=== PATIENT | female | born 1970 | race Caucasian/White ===

== ENCOUNTER 2017-07-22 21:24 | Observation (INO) ==
[2017-07-22 22:34] LABS: Basophils # 0.1 K/mcL (0.0-0.2); Basophils % 0.7 %; Eosinophils # 0.2 K/mcL (0.0-0.6); Hematocrit 42.4 % (35.3-44.9); Hemoglobin 14.3 g/dL (11.5-15.4); Immature Granulocytes % 0.2 % (0-4); Lymphocytes # 3.9 K/mcL (0.6-4.6); Lymphocytes % 44.5 %; Mean Corpuscular HGB Conc 33.7 g/dL (31.6-35.5); Mean Platelet Volume 9.8 fL (9.4-12.4); Monocytes # 0.7 K/mcL (0.0-1.3); Monocytes % 8.5 %; Neutrophils # 3.8 K/mcL (1.6-8.9); Platelet Count 379 K/mcL (140-400); Red Cell Distribution Width 12.6 % (11.5-14.5); Segmented Neutrophils % 44.1 %
[2017-07-22 22:49] LABS: BUN/Creatinine Ratio 17 (6-26); Blood Urea Nitrogen 18 mg/dL (6-20); Calcium 9.3 mg/dL (8.6-10.3); Carbon Dioxide 23 mEq/L (23-29); Chloride 104 mEq/L (98-107); Glucose 123 mg/dL (70-105); Osmolality,Calculated 285 (280-300); Sodium 136 mEq/L (136-145); eGFR For African Americans > 60 (> 60); eGFR For Non-African Americans 57 (> 60)
--- NOTE | 2017-07-22 23:30 | Emergency Department Note ---
Disposition Clinical Impression: Chest pain, rule out acute myocardial infarction Disposition: Admitted As Inpatient Condition: Fair Time of Disposition: 23:20 General Adult HPI - General Chief complaint: ED Shortness of Breath/Dyspnea Stated complaint: Bridger Time Seen by Provider: 07/22/17 22:04 Source: patient Limitations: no limitations Nursing Notes Reviewed: Yes Vital Signs Reviewed: Yes - History of Present Illness HPI Narrative: 47-year-old female presents emergency Department with concerns of multiple complaints. Patient states she was initially diagnosed with possible diverticulitis within the past few days after she was seen by her nurse practitioner and had pain on abdominal exam. Ciprofloxacin and Flagyl were started which patient has taken over the past 2 days however she has started to become weak and fatigued. Patient states she has significant shortness of breath and chest pain with exertion. No history of cardiac disease in the past. Patient has never been evaluated for cardiac disease. She has a history of tobacco use however there is no no family history of cardiac disease and patient denies a history of diabetes, high blood pressure, high cholesterol. Patient states she becomes lightheaded and diaphoretic with exertion as well. Pain Scale: 4 - Related Data Home Medications Medication Instructions Recorded Confirmed Levothyroxine [Synthroid] 175 mcg PO Q48H 10/23/16 10/23/16 Previous Rx's Medication Instructions Recorded Amoxicillin/Clavulanate [Augmentin] 875 mg PO BIDWM #10 tablet 07/09/17 Guaifenesin/Dm/Pseudoephedrine 1 each PO BID #20 tablet 07/09/17 [Capmist Dm Tablet] Magic Mouthwash [Magic Mouthwash 10 ml PO QID #240 ml 07/09/17 BLM] Allergies Allergy/AdvReac Type Severity Reaction Status Date / Time codeine AdvReac Itching Verified 07/09/17 16:55 All systems ED: reviewed and negative except as stated. Review of Systems: As Per HPI Cardiovascular: Reports: chest pain, palpitations, dyspnea on exertion Respiratory: Denies: cough, dyspnea, wheezes Gastrointestinal: Reports: abdominal pain, nausea, vomiting Past Medical History - Past Medical History Attestation: Yes The following information was validated with the patient. Source: patient Medical history: Reports: thyroid disease Surgical history: Reports: cholecystectomy Psychiatric history: Reports: no psych history [employer] history: Reports: bilateral tubal ligation - Social History Smoking Status: Current every day smoker Smokeless Tobacco Status: No Alcohol use: Reports: occasionally Drug use: Reports: none Physical Exam General: Alert and in no acute distress Skin: Warm, dry, intact Head: Normocephalic and atraumatic Neck: Supple, trachea midline and no tenderness Cardiovascular: RRR, no murmur, normal perfusion Respiratory: CTAB, no wheezing, cough, or respiratory distress Musculoskeletal: Normal strength, no tenderness, swelling or deformity GI: Soft, nontender, nondistended. Bowel sounds present Neuro: A&O to person, place, time and situation. No focal deficits noted on exam Psychiatric: cooperative and appropriate mood and affect. - General Limitations: no limitations General appearance: alert, in no apparent distress Course Vital Signs Temperature 97.8 F 07/22/17 21:26 Pulse Rate 94 07/22/17 21:26 Respiratory Rate 16 07/22/17 21:26 Blood Pressure 149/100 07/22/17 21:26 O2 Sat by Pulse Oximetry 98 07/22/17 21:26 Temperature 97.8 F 07/22/17 21:26 Pulse Rate 90 07/22/17 23:34 Respiratory Rate 18 07/23/17 00:15 Blood Pressure 128/88 07/23/17 00:15 O2 Sat by Pulse Oximetry 96 07/22/17 23:34 Oxygen Delivery Oxygen Delivery Room Air Medical Decision Making - [facility] Narrative Medical decision making narrative: Patient has pain to chest with exertion. She will be admitted for further care and evaluation of her chest pain. - Medical Records Medical records reviewed: Yes I reviewed the patient's medical records. - Lab Data Lab results reviewed: Yes I reviewed the patient's lab results. Result diagrams: 07/22/17 22:21 07/22/17 22:21 Lab Results 07/22/17 07/22/17 07/22/17 Range/Units 22:21 22:21 22:21 WBC 8.7 (4.3-11.1) K/mcL RBC 4.20 (3.82-4.97) M/mcL Hgb 14.3 (11.5-15.4) g/dL Hct 42.4 (35.3-44.9) % MCV 101.0 H (83.0-100.0) fL MCH 34.0 H (28.0-33.3) pg MCHC 33.7 (31.6-35.5) g/dL RDW 12.6 (11.5-14.5) % Plt Count 379 (140-400) K/mcL MPV 9.8 (9.4-12.4) fL Immature Gran % 0.2 (0-4) % Seg Neutrophils % 44.1 % Lymphocytes % 44.5 % Monocytes % 8.5 % Eosinophils % 2.0 % Basophils % 0.7 % Neutrophils # 3.8 (1.6-8.9) K/mcL Lymphocytes # 3.9 (0.6-4.6) K/mcL Monocytes # 0.7 (0.0-1.3) K/mcL Eosinophils # 0.2 (0.0-0.6) K/mcL Basophils # 0.1 (0.0-0.2) K/mcL Sodium 136 (136-145) mEq/L Potassium 4.0 (3.5-5.1) mEq/L Chloride 104 (98-107) mEq/L Carbon Dioxide 23 (23-29) mEq/L BUN 18 (6-20) mg/dL Creatinine 1.03 (0.60-1.20) mg/dL Est GFR ( Amer) > 60 (> 60) Est GFR (Non-Af Amer) 57 L (> 60) BUN/Creatinine Ratio 17 (6-26) Glucose 123 H (70-105) mg/dL Calculated Osmolality 285 (280-300) Lactic Acid 1.2 (0.5-2.2) mmol/L Calcium 9.3 (8.6-10.3) mg/dL Troponin I (< 0.04) ng/mL B-Natriuretic Peptide (Less than 100) pg/mL 07/22/17 07/22/17 Range/Units 22:21 22:21 WBC (4.3-11.1) K/mcL RBC (3.82-4.97) M/mcL Hgb (11.5-15.4) g/dL Hct (35.3-44.9) % MCV (83.0-100.0) fL MCH (28.0-33.3) pg MCHC (31.6-35.5) g/dL RDW (11.5-14.5) % Plt Count (140-400) K/mcL MPV (9.4-12.4) fL Immature Gran % (0-4) % Seg Neutrophils % % Lymphocytes % % Monocytes % % Eosinophils % % Basophils % % Neutrophils # (1.6-8.9) K/mcL Lymphocytes # (0.6-4.6) K/mcL Monocytes # (0.0-1.3) K/mcL Eosinophils # (0.0-0.6) K/mcL Basophils # (0.0-0.2) K/mcL Sodium (136-145) mEq/L Potassium (3.5-5.1) mEq/L Chloride (98-107) mEq/L Carbon Dioxide (23-29) mEq/L BUN (6-20) mg/dL Creatinine (0.60-1.20) mg/dL Est GFR ( Amer) (> 60) Est GFR (Non-Af Amer) (> 60) BUN/Creatinine Ratio (6-26) Glucose (70-105) mg/dL Calculated Osmolality (280-300) Lactic Acid (0.5-2.2) mmol/L Calcium (8.6-10.3) mg/dL Troponin I < 0.03 (< 0.04) ng/mL B-Natriuretic Peptide 7 (Less than 100) pg/mL - Radiology Data Radiology results reviewed: Yes I reviewed the patient's radiology results.
[2017-07-23] MEDS ORDERED: Aspirin 81 MG TAB.CHEW PO ONE (00:30)
[2017-07-23] MEDS ORDERED: Acetaminophen 325 MG TABLET PO PRN (02:10)
[2017-07-23] MEDS ORDERED: Ondansetron ODT 4 MG TAB.RAPDIS SL PRN (02:10)
[2017-07-23] MEDS ORDERED: *HR* HYDROcodone/Acet 5/325 mg TABLET PO PRN (02:10)
[2017-07-23] MEDS ORDERED: Naloxone 0.4 MG/ML INJ IVP PRN (02:10)
[2017-07-23] MEDS ORDERED: 0.9 % Sodium Chloride 1,000 ML IVC ONE (02:16)
--- NOTE | 2017-07-23 02:18 | Internal Med History&Physical ---
Date of Encounter: 07/23/17 Time of Encounter: 02:09 Assessment and Plan (1) Chest pain, rule out acute myocardial infarction Current visit: Yes Status: Acute EKG negative and troponin negative will trend troponin x3 for ACS rule out based on history, suspect more like GERD likely element of dehydration; will give IVF (2) Acid reflux Current visit: Yes Status: Acute Dx based on history of retrosternal burning sensation worse after meals and supine Give GI cocktail Start pantoprazole 40mg IV daily Qualifiers: Esophagitis presence: esophagitis presence not specified Qualified Code(s) : K21.9 - Gastro-esophageal reflux disease without esophagitis (3) LLQ abdominal pain Current visit: Yes Status: Acute overall abdominal exam benign without peritoneal signs; patient afebrile -- diverticulitis possible, though doubt complicated state, i.e., perforation or abscess cont augmentin reassess abd pain in AM consider Abdominal CT if pain changes or worsens (4) Dehydration, mild Current visit: Yes Status: Acute Given 1L NS bolus followed by maintenance IVF (5) Hypothyroid Current visit: Yes Status: Acute cont Synthroid per home Rx Qualifiers: 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 Holder is a 47 year old female with no known cardiac history admitted by ED for ACS r/o. Patient states that on Saturday she began to have left lower quadrant abdominal pain which sharpen quality and associated with a dull crampy pain over a much broader abdominal distribution. Patient saw her primary care provider who started her on Cipro and Flagyl. Patient these medications faithfully, but states that her primary care provider changed her to Augmentin today. With this course of time, patient describes that she has had significant fatigue with any activity feeling like she could pass out. Denies any overt shortness of air, actual episodes of syncope, palpitations, diaphoresis, vomiting, leg swelling. Patient also describes a retrosternal chest pain is worse when she is lying supine and after meals, is burning in quality, and extends up into her parents. Patient states that never had symptoms like this before; does not take any antacids. 47-year-old female presents emergency Department with concerns of multiple complaints. Patient states she was initially diagnosed with possible diverticulitis within the past few days after she was seen by her nurse practitioner and had pain on abdominal exam. Ciprofloxacin and Flagyl were started which patient has taken over the past 2 days however she has started to become weak and fatigued. Patient states she has significant shortness of breath and chest pain with exertion. No history of cardiac disease in the past. Patient has never been evaluated for cardiac disease. She has a history of tobacco use however there is no no family history of cardiac disease and patient denies a history of diabetes, high blood pressure, high cholesterol. Patient states she becomes lightheaded and diaphoretic with exertion as well. Past Med Surg Social Fam HX - Past Medical History Attestation: Yes The following information was validated with the patient. Medical history: thyroid disease Psychiatric history: no psych history - Past Surgical History Surgical History: cholecystectomy - Social History Smoking Status: Current every day smoker Packs per day: 1/2 Smokeless Tobacco Status: No Alcohol use: occasionally Drug use: none Internal Medicine - H&P: Meds Levothyroxine [Synthroid] 175 mcg PO Q48H 10/23/16 [History] Amoxicillin/Clavulanate [Augmentin] 875 mg PO BIDWM #10 tablet 07/09/17 [Rx] Levothyroxine 150 mcg PO Q48H 07/23/17 [History] 3 Allergy/AdvReac Type Severity Reaction Status Date / Time codeine AdvReac Itching Verified 07/09/17 16:55 All Systems PM: A 10-system review of systems was performed and is negative for pertinent findings except as documented above in the HPI. Review of systems: Positive: lightheadedness, exertional fatigue, retrosternal burning sensation, sharp left lower quadrant abdominal pain Negative: headache, fever, visual disturbances, syncope, palpitations, dyspnea, nausea, vomiting, diarrhea, grossly bloody stools, melanotic stools, dysuria, hematuria, leg swelling, focal numbness or weakness. - Constitutional Vitals: Temp Pulse Resp BP Pulse Ox 97.4 F L 75 14 126/85 98 07/23/17 00:48 07/23/17 00:48 07/23/17 00:48 07/23/17 00:48 07/23/17 00:48 Exam: CONSTITUTIONAL: Alert and oriented X3, inclined in bed, well-nourished, well appearing, in no apparent distress HEAD: Normocephalic; atraumatic. EYES: PERRL, no scleral icterus, no drainage, no conjunctival injection Oropharynx: pink, somewhat dry mucosa RESP: NRD without use of accessory musculature, CTA b/l with no wheezes/rales/ rhonchi CARD: Regular rhythm, without murmurs, rubs, or gallop ABD: grossly normal, soft, tender to LLQ with deep palpation, no guarding/ distention/rigidity, negative for peritoneal signs SKIN: normal appearance, no pallor/diaphoresis,mottling,jaundice,cyanosis EXT: DP/Rad pulses 2+ and symmetrical; no leg edema; no other lesions seen PSYCH: appropriate mood/affect Internal Med - H&P Results - Labs CBC & Chem 7: 07/22/17 22:21 07/22/17 22:21
[2017-07-23] MEDS ORDERED: 0.9 % Sodium Chloride 1,000 ML IVC SCH (02:30)
[2017-07-23] MEDS ORDERED: GI Cocktail 40 ML EACH PO ONE (02:54)
[2017-07-23] MEDS ORDERED: *HR* Heparin 5,000 UNIT/ML VIAL SQ SCH (06:00)
[2017-07-23] MEDS ORDERED: Pantoprazole 40 MG VIAL IVP SCH (07:30)
[2017-07-23 10:16] VITALS: BP 120/81
--- NOTE | 2017-07-23 13:25 | Discharge Summary ---
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 Qualified Code(s): E03.8 - Other specified hypothyroidism; E06.3 - Autoimmune thyroiditis; E06.3 - Autoimmune thyroiditis; E06.3 - Autoimmune thyroiditis (4) Acid reflux Priority: Secondary Status: Acute Qualifiers: Esophagitis presence: esophagitis presence not specified Qualified Code(s) : K21.9 - Gastro-esophageal reflux disease without esophagitis - Discharge Medications Prescriptions: Omeprazole [PriLOSEC] 20 mg PO BIDAC #60 cap Home Medications: Levothyroxine [Synthroid] 175 mcg PO Q48H 10/23/16 [History] Levothyroxine [Synthroid] 150 mcg PO Q48H 07/23/17 [History] Omeprazole [PriLOSEC] 20 mg PO BIDAC #60 cap 07/23/17 [Rx] Allergies/Adverse Reactions: 3 Allergy/AdvReac Type Severity Reaction Status Date / Time codeine AdvReac Itching Verified 07/09/17 16:55 Procedures/tests Complete & Pending: Procedures Performed prior 72 hours Category Date Time Status CT abd pelvis w iv and oral [CT] Stat Cat Scan 07/23/17 04:48 Completed Date of admission: 07/23/17 00:10 Primary care physician: Roxana Odom - Patient Status Disposition: Home, Self-Care Condition: Good Overall status at discharge: patient is back to baseline - Discharge Instructions Instructions: Diet for Ulcers and Gastritis (GEN) Follow Up With: Roxana Odom, [facility] [Primary Care Provider] - - Diet and Activity Activity: increase activity as tolerated Diet: low salt diet (please avoid fried food and spicy food) Hospital course: Ms. Holder is a 47 year old female with known hypothyroidism and no known cardiac history presented to ED with epigastric pain and chest discomfort. Patient states that on Saturday she began to have left lower quadrant abdominal pain which sharpen quality and associated with a dull crampy pain over a much broader abdominal distribution. Patient saw her primary care provider who started her on Cipro and Flagyl. Patient these medications faithfully, but states that her primary care provider changed her to Augmentin today. Patient also describes a retrosternal chest pain is worse when she is lying supine and after meals, is burning in quality, and extends up into her parents. Patient states that never had symptoms like this before; does not take any antacids. She was admitted in the hospital and placed her on tele and checked serial troponin which were negative. Her EKG showed NSR, No ST T changes, no acute ischemic changes. Her epigastric pain mostly due to GERD and Possible gastritis. With IV Protonix her symptoms resolved. Now she is tolerating PO intake well, denied any more Nausea/ vomiting. So will d/c her home in stable condition today with PO PPI. Her CT of Abd did not show any diverticulitis, so does not need any abx. - Time Spent with Patient Total time spent providing and/or coordinating discharge services: - Constitutional Vitals: Temp Pulse Resp BP Pulse Ox 97.7 F 75 18 120/81 97 07/23/17 10:13 07/23/17 10:13 07/23/17 10:13 07/23/17 10:13 07/23/17 10:13 General appearance: Present: A&O X 3, no acute distress - Head Head exam: Present: atraumatic, normal inspection - Neck Neck exam general surgery: Present: supple - Respiratory Respiratory exam: Present: decreased breath sounds. Absent: rales, respiratory distress, rhonchi, wheezes - Cardiovascular Cardiovascular exam: Present: RRR, +S1, +S2. Absent: tachycardia - GI/Abdominal GI/Abdominal exam: Present: normal bowel sounds, soft. Absent: rebound, rigid, tenderness - Extremities Exam Extremities exam: Absent: calf tenderness, pedal edema, tenderness - Back Exam Back exam: Absent: CVA tenderness (L), CVA tenderness (R) - Neurological Exam Neurological exam: Present: alert, oriented X3 - Psychiatric Psychiatric exam: Present: normal affect, normal mood
--- NOTE | 2017-07-24 08:15 | Electrocardiograph Report ---
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
== END 2017-07-23 15:20 | disposition home or self-care (01) ==
LOC: EMEROO 21:24 → 3ANU 21:24 → SUATTDRO 07-23 00:10 → 3ANU 07-23 00:17
PROVIDERS: ADMIT Family Medicine; ATTEND Family Medicine